=== PATIENT | female | born 1975 | race Caucasian/White ===

== ENCOUNTER → 2020-11-27 | Outpatient (CLI) | payer BC ==
--- NOTE | 2020-11-27 16:12 | REP ---
INDICATION: ABD FINDINGS OF LUNG FIELD. COMPARISON: Outside CT 08/17/2020 TECHNIQUE: Noncontrast scanning through the chest with coronal and sagittal reconstructions. FINDINGS: The lung acosta are well inflated. In the deep sulci of both lower lung zones are some minor dependent atelectatic change similar but not identical to the previous study. I do not see pleural plaque or calcified plaque. There is curvilinear scar in the anterior medial subpleural right lung abutting the right heart border on image 42, unchanged. Despite careful evaluation I am unable to identify any parenchymal nodule or mass. There is a confluence of vessels in the right suprahilar region but no mass or nodule there. The heart is not enlarged. There is no pericardial thickening or effusion and no hiatal hernia. A superior pericardial recess is seen with small amount of fluid. There is no pathologic sized mediastinal, hilar, axillary or supraclavicular adenopathy. The aorta is without aneurysm or calcification. No superior mediastinal mass identified. Bone windows show thoracic spine with some minor spondylosis without acute finding. The sternum, manubrium, visible clavicles, scapula, humeral heads and ribs were unremarkable. The upper abdomen shows a visible portion of liver, spleen, pancreas, adrenal glands pancreas and upper poles of kidneys without any acute finding. Those loops of bowel included were unremarkable. IMPRESSION: 1. There is some minor dependent atelectasis in the deep sulci of the lower lobes bilaterally in a slightly changed pattern from the previous study but I see no parenchymal nodule, acute infiltrate, parenchymal mass, pleural based mass or calcific pleural plaque nor other parenchymal lung finding of significance. 2. There is no visible pathologic sized mediastinal or hilar adenopathy. 3. The aorta is without aneurysm. No hiatal hernia. No visible chest wall mass. Upper abdomen grossly intact. I would welcome your feedback on this case and any insight you might have. <Electronically signed by Selvin Arriaza > 11/27/20 [id number]
== END ==
LOC: M RAD 13:31
PROVIDERS: ATTEND Internal Medicine Pulmonary Disease
DX: R91.8 Other nonspecific abnormal finding of lung field (principal); J98.11 Atelectasis

== ENCOUNTER 2022-05-24 09:18 | Day surgery (SDC) | payer BC ==
[~2022-05-24] VITALS: Ht 165.1 cm; Wt 99.3 kg
[~2022-05-24 09:18] MED LIST: FLUO20CA22 PO; FOLI0.4T5 PO; MAGN400C2 PO; NS 1,000 ML IV ONE; OMEG10002 PO; VITA100093 PO; VITATAB73 PO; VITMTA PO; WARF-21 PO
[2022-05-24] MEDS ORDERED: propofoL 200 MG/20 ML VIAL As Ordered ONE (10:29)
[2022-05-24] MEDS ORDERED: GLYCOPYRROLATE INJ 0.2 MG/ML 2 ML VIAL As Ordered ONE (10:30)
[2022-05-24 11:22] VITALS: BP 140/62
== END 2022-05-24 11:41 | disposition home or self-care (01) ==
LOC: M OPP 09:18
PROVIDERS: ATTEND Internal Medicine Gastroenterology
DX: Z12.11 Encounter for screening for malignant neoplasm of colon (principal); Z80.0 Family history of malignant neoplasm of digestive organs; D12.4 Benign neoplasm of descending colon; K63.5 Polyp of colon; K64.8 Other hemorrhoids; Q43.8 Other specified congenital malformations of intestine; Z79.01 Long term (current) use of anticoagulants; Z79.899 Other long term (current) drug therapy; Z88.0 Allergy status to penicillin; Z88.2 Allergy status to sulfonamides; D68.51 Activated protein C resistance; F41.9 Anxiety disorder, unspecified; G43.909 Migraine, unspecified, not intractable, without status migrainosus; Z86.73 Personal history of transient ischemic attack (TIA), and cerebral infarction without residual deficits; Z87.891 Personal history of nicotine dependence